=== PATIENT | female | born 1955 | race Caucasian/White ===

== ENCOUNTER 2019-08-06 16:48 | Inpatient (IN) | payer BC, OTHER ==
[2019-08-06] MEDS ORDERED: HYDROcodone/Acetaminophen 10/325 mg Tablet PO PRN ×2 (17:03)
[2019-08-06] MEDS ORDERED: Mag-Al 1200 mg/1200 mg/30 ML UDCUP PO PRN (17:03)
[2019-08-06] MEDS ORDERED: hydrALAZINE 20 MG/ML VIAL SLOW IVP PRN ×2 (17:03)
[2019-08-06] MEDS ORDERED: Morphine 4 MG/ML VIAL SLOW IVP PRN (17:03)
[2019-08-06] MEDS ORDERED: Promethazine HCl 25 MG/ML VIAL IM PRN (17:03)
[2019-08-06] MEDS ORDERED: Morphine 2 MG/ML SYRINGE SLOW IVP PRN (17:03)
[2019-08-06 17:24] VITALS: BMI 28.7
--- NOTE | 2019-08-06 17:49 | RAD ---
Chest AP view INDICATION: Preop evaluation COMPARISON: None FINDINGS: Lungs: The lungs are clear Cardiac silhouette: The cardiomediastinal silhouette appears within normal limits. Pulmonary vasculature: Normal Pleural spaces: No pleural effusion or pneumothorax is demonstrated. Upper abdomen: There is a laparoscopic gastric band in place. Surgical clips are seen within the rig ht upper quadrant possibly reflective of prior cholecystectomy. Osseous structures: No acute osseous abnormality. There is scattered degenerative and osteoarthritic change present. Additional findings: None. IMPRESSION: No acute cardiopulmonary abnormality.
[2019-08-06 17:54] LABS: INR-International Normal Ratio 0.9; PTT 26.8 sec (22.9-36.1); Prothrombin Time 12.5 sec (12.0-14.7)
[2019-08-06] MEDS ORDERED: cefTRIAXone\\ROCEPHIN 2 GM in Sodium Chloride 0.9% 100 ML IVPB SCH (18:00)
[2019-08-06] MEDS: Ondansetron PF 4 MG/2 ML Vial IVP PRN (18:23)
[2019-08-06] MEDS: Ketorolac Tromethamine 30 MG/ML VIAL IVP PRN (18:23)
[2019-08-06] MEDS: Sodium Chloride 0.9% 1,000 ML IV SCH (18:24)
[2019-08-06] MEDS ORDERED: Zolpidem Tartrate 5 MG TAB PO PRN (18:56)
[2019-08-06] MEDS: Docusate 100 MG CAP PO SCH (21:45)
[2019-08-06] MEDS: Famotidine/PF 20 mg/2ml Vial SLOW IVP SCH (21:45)
[2019-08-06] MEDS: Atorvastatin Calcium 20 MG TAB PO SCH (21:45)
[2019-08-06] MEDS: Flecainide 50 MG TAB PO SCH (21:45)
[2019-08-06] MEDS: Acetaminophen 500 MG TAB PO PRN (21:53)
[2019-08-06] MEDS: diphenhydrAMINE 50 MG/ML VIAL IVP PRN (21:53)
--- NOTE | 2019-08-07 00:17 | CON ---
DATE OF CONSULTATION: 08/06/2019 REASON FOR REQUEST: Right ureteral calculi with nausea. HISTORY OF PRESENT ILLNESS: Ms. Gomes is a pleasant 64-year-old female who presented to the emergency room due to acute onset of right flank pain. She was provided a urologic appointment, as her pain was adequately controlled, with no evidence of fever, leukocytosis with normal renal function. As she has persistent nausea, work-in appointment was provided. Chart review demonstrates she previously underwent left ureteroscopy, laser lithotripsy, CT on this admission demonstrates right hydronephrosis, mild due to 5 mm distal ureteral calculi. The patient was advised regarding observation in-house due to nausea to prevent dehydration. She agreed. The patient was seen in our office today, therefore subsequently transferred for medical admission due to nausea, persistent discomfort PAST MEDICAL HISTORY: Includes arthritis, hypercholesteremia, hypothyroidism, history of renal lithiasis, hiatal hernia, obesity, anxiety. SURGICAL HISTORY: Include T and A, total abdominal hysterectomy, x3, lap band in January 2006, cystoscopy, left ureteroscopy, laser lithotripsy, 6 x 24 double-J ureteral [place] [address] Marino. SOCIAL HISTORY: She is a nonsmoker. Denies illicit drug use. FAMILY HISTORY: Positive for obesity. HOME MEDICATIONS: Include Synthroid, flecainide, Prozac, metoprolol, simvastatin, and ranolazine. ALLERGIES: PER PATIENT, SULFA CAUSES RASH, PHYSICAL EXAMINATION: VITAL SIGNS: Stable at a weight of 168, temperature 97.6. GENERAL: The patient has nausea, uncomfortable due to nausea. HEENT: Grossly unremarkable, has positive facial protection due to COVID-19 pandemic. HEART: Regular rate. LUNGS: Clear. ABDOMEN: Soft, morbidly obese. No rigidity. No rebound. Subjective discomfort in the right lower quadrant flank. NEUROLOGIC: Appears to be moving all extremities. No gross focal deficits. EXTREMITIES: No cyanosis, clubbing, or edema. SKIN: No rash. No erythema noted. MUSCULOSKELETAL: Moving all extremities. Sensation appears to be intact. No significant lymphadenopathy. PSYCHIATRIC: Appears to be adequate given her current circumstances. LABORATORY DATA: Pertinent labs which I have reviewed extensive records at [facility]. White count 7.4, hemoglobin 13, platelets 261. Sodium 139, potassium 3.7, creatinine 0.7, blood sugar 123. UA does demonstrate rare epithelials, 3 to 9 rbc's, 10 to 19 wbc's, positive nitrites, bacteria noted. Culture is pending. DIAGNOSTIC STUDIES: CT of the abdomen and pelvis stone protocol at [facility] demonstrates right hydroureteronephrosis, mild due to 5 mm distal ureteral calculi at the level of S3 and S4, right lower pole punctate renal lithiasis, multiple left renal calculi punctate in caliber about 5 in number with no left hydronephrosis. Hiatal hernia noted with multiple sigmoid diverticula. IMPRESSION AND PLAN: Ms. Gomes is a pleasant 64-year-old female. Work-in appointment provided today due to nausea with persistent discomfort. Recommend medical observation to prevent dehydration/pain management. we will continue broad-spectrum antibiotic therapy. The patient is scheduled for cysto, stent tomorrow morning, the patient is to be n.p.o. except medications. I discussed her case with Dr. De La Torre, surgical windows security analyst, given urgent need to proceed due to pain and nausea, she is cleared to proceed with or without COVID-19 testing. Job ID: [id number] [facility]
[2019-08-07] MEDS: Sodium Chloride 0.9% 1,000 ML IV SCH ×4 (01:39→19:54)
[2019-08-07] MEDS: Levothyroxine 150 MCG TAB PO SCH (05:55)
[2019-08-07] MEDS: Ketorolac Tromethamine 30 MG/ML VIAL IVP PRN (05:55)
[2019-08-07] MEDS: Ondansetron PF 4 MG/2 ML Vial IVP PRN (05:56)
[2019-08-07 07:28] LABS: Anion Gap 18 mmol/L (10-20); BUN (Urea Nitrogen) 12 mg/dL (9.8-20.1); Calc. Creatinine Clearance 61 mL/min (70-130); Calcium 8.1 mg/dL (7.8-10.44); Carbon Dioxide 17 mmol/L (23-31); Chloride 108 mmol/L (98-107); Estimated GFR-MDRD 48; Glucose 131 mg/dL (80-115); Potassium 4.7 mmol/L (3.5-5.1); Sodium 138 mmol/L (136-145)
--- NOTE | 2019-08-07 07:53 | PRG ---
DATE OF SERVICE: 08/07/2019 SUBJECTIVE: The patient continues to have intermittent right flank pain, however, denies fever or chills. Has had intermittent emesis, however, feeling better with fluids and pain management. OBJECTIVE: VITAL SIGNS: Stable. T-max of 99.5, 81, 16, 95, 100/62. I's and O 's not strictly documented. GENERAL: The patient is in no acute distress. HEART: Regular rate. LUNGS: Clear. ABDOMEN: Soft, nontender, nondistended. Subjective discomfort in the right lower quadrant flank region. EXTREMITIES: No cyanosis, clubbing, or edema. A.m. labs are pending. IMPRESSION AND PLAN: Ms. Gomes is a 64-year-old female with history of recurrent urolithiasis, presents with right flank pain due to distal ureteral calculi with hydronephrosis. UA at [facility] demonstrated bacteria, she has been provided with Rocephin broad-spectrum. Due to intractable pain, nausea, and emesis, she was admitted overnight, and will proceed with cysto, right stent today. Anticipate the patient will be discharged after surgical intervention. Elective ureteroscopy, laser lithotripsy when urine culture negative discussed with her in detail. Consent in chart. Job ID: [id number] [facility]
[2019-08-07] MEDS: Flecainide 50 MG TAB PO SCH ×2 (09:00→20:05)
[2019-08-07] MEDS: FLUoxetine HCl 20 MG CAP PO SCH (09:00)
[2019-08-07] MEDS: cefTRIAXone\\ROCEPHIN 2 GM in Sodium Chloride 0.9% 100 ML IVPB SCH (09:00)
[2019-08-07] MEDS: Docusate 100 MG CAP PO SCH ×2 (09:01→20:05)
[2019-08-07] MEDS: Famotidine/PF 20 mg/2ml Vial SLOW IVP SCH ×2 (09:15→20:05)
[2019-08-07] MEDS ORDERED: Iopamidol 50 ML FS ONE (11:05)
[2019-08-07] MEDS ORDERED: Ondansetron PF 4 MG/2 ML Vial ONE (11:28)
[2019-08-07] MEDS ORDERED: EPHEDRINE 25 MG/5 ML SYRINGE ONE (11:28)
[2019-08-07] MEDS ORDERED: Metoclopramide HCl 10 MG/2 ML VIAL ONE (11:28)
[2019-08-07] MEDS ORDERED: PHENYLEPHRINE-NS 100 MCG/ML 10 ML SYRINGE ONE (11:28)
[2019-08-07] MEDS ORDERED: Lidocaine 1% PF 5 ML VIAL ONE (11:28)
[2019-08-07] MEDS ORDERED: Fentanyl 100 MCG/2 ML VIAL ONE (11:37)
[2019-08-07] MEDS ORDERED: Oxybutynin 5 MG TAB PO PRN (11:52)
[2019-08-07] MEDS ORDERED: Phenazopyridine HCl 97.5 MG TABLET PO PRN (11:52)
[2019-08-07] MEDS ORDERED: Ondansetron HCl/PF 4 MG/2 ML Vial IVP PRN (12:02)
[2019-08-07] MEDS ORDERED: Promethazine HCl 25 MG/ML VIAL IM PRN (12:02)
[2019-08-07] MEDS ORDERED: HYDROmorphone 2 MG/ML VIAL SLOW IVP PRN (12:02)
[2019-08-07] MEDS ORDERED: Promethazine HCl 25 MG/ML VIAL SLOW IVP PRN (12:02)
--- NOTE | 2019-08-07 12:13 | RAD ---
EXAM: Retrograde IVP HISTORY: Kidney stones COMPARISON: None FINDINGS/IMPRESSION: Limited intraoperative fluoroscopic views of the retrograde IVP were submitted f or interpretation. There is mild right hydronephrosis. No obvious filling defects are seen. A ureteral stent is seen on the last image in good position in the right renal collecting system.
[2019-08-07] MEDS ORDERED: Meperidine HCl/PF 25 MG/ML VIAL ONE (12:47)
[2019-08-07 12:48] LABS: SARS-CoV-2 MS2 Positive; SARS-CoV-2 N Gene Negative; SARS-CoV-2 S Gene Negative; SARS-CoV-2 orf1ab Negative
[2019-08-07 17:09] LABS: Bacteria/HPF 3+ HPF (None Seen); Bilirubin Negative (Negative); Blood, Urine 3+ (Negative); Clarity Extra Turbid (Clear); Glucose, Urine (Dipstick) Normal (Negative); Leukocyte 500 Leu/uL (Negative); Nitrite Negative (Negative); Protein, Urine (Dipstick) 100 mg/dL (Neg-Trace); RBC/HPF Greater than 50 HPF (0-3); Squamous Epithelial None Seen HPF (0-3); Urobilinogen Normal mg/dL (Less than 2); WBC/HPF Greater than 50 HPF (0-3)
--- NOTE | 2019-08-07 18:03 | OP ---
DATE OF PROCEDURE: 08/07/2019 PREOPERATIVE DIAGNOSES: 1. A 64-year-old female with right distal ureteral calculi at the level of S3 with mild hydronephrosis. 2. Right lower pole punctate renal lithiasis, nonobstructing. 3. Left punctate renal lithiasis x5 with no evidence of left hydronephrosis. PROCEDURES PERFORMED: Cystoscopy, right retrograde, 4.8 x 26 double-J ureteral stent with distal tail in situ, 16-Hebrew [place] catheter to gravity. ANESTHESIA: LMA. COMPLICATIONS: None apparent. DISPOSITION: To recovery room. INDICATIONS FOR PROCEDURE AND HISTORY: Ms. Gomes is a pleasant 64-year-old female, who presented due to acute onset of right flank pain. She had no fever, no leukocytosis with normal renal function. However, due to intractable pain with nausea, she was admitted overnight. Broad-spectrum antibiotics were provided and she presents today for cysto, stent. She has been fully informed that ureteroscopy and laser lithotripsy will be performed at a later date when urine culture negative. Risks and complications of the procedure were reviewed including, but not limited to, bleeding, pain, infection, urosepsis, ureteral, renal, bladder injury. All questions answered to her satisfaction. She desired to proceed. DESCRIPTION OF PROCEDURE: After an informed consent was signed, the patient was taken to the operating room, placed in a dorsal lithotomy position with the genital area prepped and draped in the usual surgical sterile fashion. A 21-Hebrew cystoscope was utilized for cystoscopy, which demonstrated normal bladder mucosa. There were no bladder tumors or stones seen within the bladder. UOs were identified in normal orthotopic position. There was a questionable ureteral stone versus phlebolith in the right distal ureter about 2 to 3 cm proximal to the ureteral orifice, retrograde pyelogram was gently performed, which demonstrating tortuous ureter with possible filling defect in the distal ureter versus the mid sacrum with proximal hydroureteronephrosis, with J hooking of the proximal ureter consistent with obstruction. A 0.035 Sensor wire was able to be passed to the right upper pole without significant issues; however, at the level of the renal pelvis, UPJ, had a difficult time passing a 6-Hebrew stent. Therefore, the stent was completely removed, and a 5-Hebrew open-ended catheter was gently passed, which this did pass to the level of the renal pelvis with ease. Subsequently, we transitioned to a 4.8-Hebrew x 26 cm ureteral stent and this passed without significant resistance. Adequate placement was confirmed on fluoroscopy. With the placement of the ureteral stent, she has significant efflux of debris consistent with pyelonephritis. Therefore, an indwelling Colorado catheter was placed to gravity and I will monitor her urine output in her clinical status. Pending her clinical status, she will likely stay another 24 hours, as we will need to monitor her for infection and complications. She will be provided broad-spectrum antibiotics and IV fluids. She remains clinically stable. Job ID: [id number] [facility]
--- NOTE | 2019-08-07 19:20 | EKG ---
Test Reason : Blood Pressure : / mmHG Vent. Rate : 074 BPM Atrial Rate : 074 BPM P-R Int : 182 ms QRS Dur : 084 ms QT Int : 454 ms P-R-T Axes : 069 044 063 degrees QTc Int : 503 ms Normal sinus rhythm Prolonged QT Abnormal ECG No previous ECGs available Confirmed by DR. Ruthie RYAN ([id number]) on 08/07/2019 7:19:59 PM Referred By: FARHANA Confirmed By:DR. Ruthie RYAN
[2019-08-07] MEDS: Acetaminophen 500 MG TAB PO PRN (19:54)
[2019-08-07] MEDS: Atorvastatin Calcium 20 MG TAB PO SCH (20:05)
[2019-08-08] MEDS: Sodium Chloride 0.9% 1,000 ML IV SCH (02:10)
[2019-08-08] MEDS: Levothyroxine 150 MCG TAB PO SCH (06:37)
[2019-08-08] MEDS: Acetaminophen 500 MG TAB PO PRN (06:37)
--- NOTE | 2019-08-08 08:19 | PRG ---
DATE OF SERVICE: 08/08/2019 SUBJECTIVE: The patient is feeling better, has headache, however, overall pain is significantly improved, with resolution of nausea. Requiring only tramadol and Tylenol for discomfort. Tolerating regular diet. OBJECTIVE: VITALS: T-max of 100.2 last night. T-current is 98.2, 87, 18, 94, 123/68. I's and O's 3700 in, 1750 out. She is positive 1.9 L. Oral intake adequate over 1 L. GENERAL: The patient is in no acute distress. Clinically appears to be much better. HEART: Regular rate, LUNGS: Clear. ABDOMEN: Soft. No rigidity. No rebound. No CVA tenderness appreciated. Colorado catheter draining clear yellow urine. Repeat urine culture is pending. Urine culture from outside facility pending as well. IMPRESSION AND PLAN: Ms. Gomes is a 64-year-old female who presented with right distal ureteral calculi with mild hydronephrosis with no evidence of leukocytosis with normal renal function. Due to intractable nausea, discomfort, was admitted , status postop day #1, status post right ureteral stent. The patient had significant debris with ureteral stent placement, was observed overnight. I informed to her that we should keep for another day, as she did have a temperature last night. We will continue her IV Rocephin, as she has positive fluid balance, will Hep-Lock IV. The patient encouraged to be out of bed, I will discontinue Colorado. Anticipate the patient can be discharged tomorrow and hopefully, we will have the sensitivity in ID from previous urine culture for oral targeted antibiotic regimen. Job ID: [id number] [facility]
[2019-08-08] MEDS: cefTRIAXone\\ROCEPHIN 2 GM in Sodium Chloride 0.9% 100 ML IVPB SCH (09:06)
[2019-08-08] MEDS: Famotidine/PF 20 mg/2ml Vial SLOW IVP SCH ×2 (09:19→20:08)
[2019-08-08] MEDS: Flecainide 50 MG TAB PO SCH ×2 (09:19→20:08)
[2019-08-08] MEDS: Docusate 100 MG CAP PO SCH ×2 (09:19→19:58)
[2019-08-08] MEDS: FLUoxetine HCl 20 MG CAP PO SCH (09:19)
[2019-08-08] MEDS: Ibuprofen 600 MG TAB PO PRN (11:45)
[2019-08-08] MEDS: traMADol HCl 50 MG TAB PO PRN (19:53)
[2019-08-08] MEDS: Atorvastatin Calcium 20 MG TAB PO SCH (20:07)
[2019-08-08] MEDS: diphenhydrAMINE 50 MG/ML VIAL IVP PRN (20:08)
[2019-08-09] MEDS: traMADol HCl 50 MG TAB PO PRN (02:44)
[2019-08-09] MEDS: Levothyroxine 150 MCG TAB PO SCH (05:38)
[2019-08-09] MEDS: Ibuprofen 600 MG TAB PO PRN (07:12)
--- NOTE | 2019-08-09 07:35 | DIS ---
DATE OF ADMISSION: 08/06/2019 DATE OF DISCHARGE: 08/09/2019 ADMITTING DIAGNOSES: Intractable discomfort, nausea, due to right distal ureteral calculi. PROCEDURES: Cysto, right retrograde 4.8 x 26 stent on August 06. DISPOSITION: To home, to self-care. CONDITION: Stable. FOLLOWUP: followup appointment on August 12 at 1:00 p.m. BRIEF HOSPITAL COURSE: Ms. Gomes is a pleasant 64-year-old female with history of recurrent kidney stone, presented with right flank pain, nausea. Due to persistent discomfort, nausea, and emesis, she was admitted. Underwent cysto, stent placement. The patient's urine culture at an outside facility demonstrates E coli, she has responded to Omnicef with recheck urine culture in-house negative. She has been afebrile, medically cleared to be discharged. DISCHARGE MEDICATIONS: 1. Omnicef 300 mg one p.o. b.i.d. x14 days. 2. VESIcare 5 mg one p.o. daily. 3. Azo p.r.n. 4. Zofran 4 mg ODT p.r.n. 5. Tramadol 50 mg 1 to 2 p.o. q.6 hours p.r.n. FOLLOWUP: followup appointment next week. Job ID: [id number] [facility]
[2019-08-09] MEDS: cefTRIAXone\\ROCEPHIN 2 GM in Sodium Chloride 0.9% 100 ML IVPB SCH (08:07)
[2019-08-09] MEDS: FLUoxetine HCl 20 MG CAP PO SCH (08:08)
[2019-08-09] MEDS: Flecainide 50 MG TAB PO SCH (08:08)
[2019-08-09] MEDS: Famotidine/PF 20 mg/2ml Vial SLOW IVP SCH (08:08)
[2019-08-09] MEDS: Docusate 100 MG CAP PO SCH (08:08)
[2019-08-09 10:25] VITALS: BP 145/77; TEMP 97.7
[2019-08-11] MEDS ORDERED: Ibuprofen 600 MG TAB PO PRN (23:00)
--- NOTE | 2019-08-12 01:33 | PQF ---
HARDEEP BLAKELY KATHY DO [id number] CLINICAL DOCUMENTATION CLARIFICATION FORM: POST DISCHARGE Addendum to original discharge summary date: ____ Late entry note date: __ DATE:08/12/2019 ATTN: Racheal Lemons Please exercise your independent, professional judgment in responding to the clarification form. Clinical indicators are provided on the bottom of this form for your review Please check appropriate box(es): [ ] Sepsis due to Pyelonephritis [ X ] Localized infection without sepsis [ ] Other diagnosis [ ] Unable to determine In addition, please specify: Present on Admission (POA): [ X ] Yes [ ] No [ ] Unable to determine For continuity of documentation, please document condition throughout progress notes and discharge summary. Thank You. CLINICAL INDICATORS - SIGNS / SYMPTOMS / LABS Vital signs 08/05 BP 167/80, Pulse 84, Resp 18, Temp 97.4 Vital signs 08/06 BP 96/59, Pulse 106, Resp 18, Temp 100.2 Urinalysis 08/06 Red A color, Extra Turbid a, urine blood 3+, Leukocyte esterase 500, Bacteria 3+A Urine Culture 08/06 No growth at 48 hrs Consult p1 08/05 Dr Umanzor presented with acute onset of right flank pain Operative report p2 08/06 Pyelonephritis RISK FACTORS Consult p1 08/05 64 year-old Female Consult p1 08/05 Hx of renal lithiasis Consult p1 08/05 Hypercholesteremia Operative report p1 08/06 Ureteral calculi Operative report p1 08/06 Renal lithiasis, non-obstructing Operative report p2 08/06 Pyelonephritis TREATMENTS: Urinalysis ordered 08/06 Urine Culture ordered 08/06 consult 08/05 Racheal Lemons Operative report Ureteral stent insertion with Retrograde pyelogram MAR 08/05 IVF NS 1L MAR 16 IV Ceftriaxone Sodium 2 gm (This form is maintained as a part of the permanent medical record) 2014 [email or web address], [email or web address] All Rights Reserved [email or web address]
== END 2019-08-09 10:34 | disposition home or self-care (01) | DRG 661 ==
LOC: T4-A 16:48 → OBSVTOIN 16:48 → INTOOBSV 16:48 → EDSTATUS 08-07 16:47
PROVIDERS: ADMIT Urology; ATTEND Urology
PROC: 0T768DZ Dilation of Right Ureter with Intraluminal Device, Via Natural or Artificial Opening Endoscopic (ICD-10-PCS; principal; 2019-08-07)
PROC: 0T9B70Z Drainage of Bladder with Drainage Device, Via Natural or Artificial Opening (ICD-10-PCS; 2019-08-07)
PROC: BT1DZZZ Fluoroscopy of Right Kidney, Ureter and Bladder (ICD-10-PCS; 2019-08-07)
DX: N13.6 Pyonephrosis (principal); M19.90 Unspecified osteoarthritis, unspecified site; E03.9 Hypothyroidism, unspecified; E78.00 Pure hypercholesterolemia, unspecified; E66.9 Obesity, unspecified; F41.9 Anxiety disorder, unspecified; Z11.59 Encounter for screening for other viral diseases; Z90.710 Acquired absence of both cervix and uterus; Z68.28 Body mass index [BMI] 28.0-28.9, adult; Z87.442 Personal history of urinary calculi; Z88.2 Allergy status to sulfonamides; Z79.899 Other long term (current) drug therapy; Z79.890 Hormone replacement therapy
CPT/HCPCS: 36415; 71045; 74420; 80048; 81001; 85610; 85730; 87086; 87635; 93005; 93010; 96361; 96374; 96376; G0378; G0379; J0696; J1200; J1885; J2001; J2175; J2405; J2765; J3010; J3490; Q9967; S0028; U0003

== ENCOUNTER 2019-08-16 06:14 | Outpatient (CLI) | payer BC, OTHER ==
[2019-08-16 11:28] LABS: Hemoglobin 13.7 g/dL (12.0-16.0); Mean Corpuscular HGB CONC 33.6 g/dL (32.0-36.0); Mean Corpuscular Hemoglobin 29.1 pg (27.0-31.0); Mean Corpuscular Volume 86.5 fL (78.0-98.0); Mean Platelet Volume 7.3 fL (7.4-10.4); Platelet Count 391 thou/uL (130-400); Red Blood Cell (RBC) Count 4.71 mill/uL (4.20-5.40); White Blood Cell (WBC) Count 6.9 thou/uL (4.8-10.8)
[2019-08-16 11:39] LABS: INR-International Normal Ratio 0.9; PTT 25.8 sec (22.9-36.1); Prothrombin Time 12.3 sec (12.0-14.7)
--- NOTE | 2019-08-16 11:57 | RAD ---
PA AND LATERAL CHEST: HISTORY: Preop. FINDINGS: Heart size is within normal limits. There are atherosclerotic changes of the aorta. The lungs are c lear of infiltrates. IMPRESSION: No active intrathoracic disease. POS: [facility]
[2019-08-16 13:24] LABS: Anion Gap 16 mmol/L (10-20); BUN (Urea Nitrogen) 9 mg/dL (9.8-20.1); Calc. Creatinine Clearance 0 mL/min (70-130); Calcium 9.3 mg/dL (7.8-10.44); Carbon Dioxide 25 mmol/L (23-31); Chloride 106 mmol/L (98-107); Estimated GFR-MDRD 75; Glucose 102 mg/dL (80-115); Potassium 4.5 mmol/L (3.5-5.1); Sodium 142 mmol/L (136-145)
[2019-08-17 13:14] LABS: SARS-CoV-2 MS2 Positive; SARS-CoV-2 N Gene Negative; SARS-CoV-2 S Gene Negative; SARS-CoV-2 orf1ab Negative
== END 2019-08-16 06:15 | disposition home or self-care (01) ==
LOC: LABBT 06:14
PROVIDERS: ATTEND Urology
DX: Z01.818 Encounter for other preprocedural examination (principal); Z11.59 Encounter for screening for other viral diseases; N20.2 Calculus of kidney with calculus of ureter; R11.0 Nausea
CPT/HCPCS: 71046; 80048; 85027; 85610; 85730; 87635; 93005; 93010; U0003

== ENCOUNTER 2019-08-21 05:47 | Day surgery (SDC) | payer BC ==
[2019-08-15 13:18] VITALS: BMI 27.9
[2019-08-21] MEDS ORDERED: Fentanyl 100 MCG/2 ML VIAL ONE (06:39)
[2019-08-21] MEDS ORDERED: Levofloxacin 500 mg/D5W 100 ml Premix Bag ONE (06:47)
[2019-08-21] MEDS ORDERED: Iopamidol 15 ML ONE (07:09)
[2019-08-21] MEDS ORDERED: Ondansetron HCl/PF 4 MG/2 ML Vial IVP PRN (07:16)
[2019-08-21] MEDS ORDERED: Promethazine HCl 25 MG/ML VIAL SLOW IVP PRN (07:16)
[2019-08-21] MEDS ORDERED: Morphine Sulfate 2 MG/ML SYRINGE SLOW IVP PRN (07:16)
[2019-08-21] MEDS ORDERED: Promethazine HCl 25 MG/ML VIAL IM PRN (07:16)
[2019-08-21] MEDS ORDERED: HYDROmorphone 2 MG/ML VIAL SLOW IVP PRN (07:16)
[2019-08-21] MEDS ORDERED: Meperidine HCl/PF 25 MG/ML VIAL SLOW IVP PRN (07:16)
[2019-08-21] MEDS ORDERED: Scopolamine 1.5 mg/72 hour Patch ONE (07:32)
[2019-08-21] MEDS ORDERED: SUGAMMADEX SODIUM 500 MG/5 ML VIAL ONE ×2 (08:01)
--- NOTE | 2019-08-21 08:02 | RAD ---
Abdomen one view HISTORY: Ureteral calculus. FINDINGS: Gas and stool throughout the colon, predominantly obscuring the renal outlines. Bariatric l ap band partially visualized, in good position at the upper stomach. Double pigtail right ureteral stent is in place. Overlying the distal stomach the right lower margin of the sacrum is a rounded 0.5 cm calculus that may be within the distal right ureter. Phleboliths are also apparent within the pelvis and retroperitoneum. IMPRESSION : Right ureteral stent in good position. Probable small distal right ureteral calculus. Bariatric lap band. Constipation.
--- NOTE | 2019-08-21 08:07 | RAD ---
Retrograde ureterogram intraoperative fluoroscopy HISTORY: Ureteral calculus. FINDINGS: Intraoperative fluoroscopy was provided for retrograde study as performed by Dr. Lizzie estrada Single spot fluoroscopic view partially shows cystoscopy catheter. Double-pigtail right ureteral stent is in place, slightly changed in position and larger in caliber than on the previous exam. Distal right ureteral calculus on the previous exam not well visualized, possibly removed.
[2019-08-21] MEDS ORDERED: Phenazopyridine HCl 97.5 MG TABLET ONE (08:26)
--- NOTE | 2019-08-21 09:09 | OP ---
DATE OF PROCEDURE: 08/21/2019 PREOPERATIVE DIAGNOSES: A 64-year-old female with history of recurrent urolithiasis, presents with right distal ureteral calculi, with previous history of urinary tract infection treated and resolved. POSTOPERATIVE DIAGNOSES: A 64-year-old female with history of recurrent urolithiasis, presents with right distal ureteral calculi, with previous history of urinary tract infection treated and resolved. PROCEDURES PERFORMED: Cystoscopy, right ureteroscopy, laser lithotripsy of distal ureteral calculi, 6 x 26 double-J ureteral stent replacement with Dangler taped to the patient's pubic symphysis, laser lithotripsy. ANESTHESIA: LMA general. COMPLICATIONS: None apparent. DISPOSITION: To recovery room in stable condition. INDICATION FOR PROCEDURE AND HISTORY: Ms. Gomes is a pleasant 64-year-old female who presented with right flank pain, with nausea. Urine culture demonstrated E coli, which has been treated with cephalosporins with recheck urine culture negative. She presents today for ureteroscopy and laser lithotripsy. Risks and complications of the procedure were reviewed with her in detail including, but not limited to: Bleeding; pain; infection; injury to adjacent organs; ureteral, renal, or bladder injury; stricture formation; possible secondary procedure. All questions answered to her satisfaction, she desired to proceed. DESCRIPTION OF PROCEDURE: After an informed consent was signed, the patient was taken to the operating room, placed in dorsal lithotomy position with the genital area prepped and draped in the usual surgical sterile fashion. A 21-Austrian cystoscope was utilized for cystoscopy, which demonstrated normal bladder mucosa. The right ureteral stent was removed to the level of the meatus and a 0.035 Sensor wire passed through the stent into the right upper pole. At this time, we transitioned to a semi-rigid ureteroscope. I was able to easily engage the stone and she was passively dilated. There was a stone debris fragmented in the distal ureter just proximal to the presenting stone and this was basket extracted. The initial stone nidus was seen at the level of S3 for ureter and using 365 micron laser fiber, we laser lithotripsied the edges. When the stone was small enough , we basket extracted the stone atraumatically. She tolerated the procedure well. As there was endoscopic clearance, a 6 x 26 double-J ureteral stent was passed over the guidewire. The wire was subsequently removed with good coil seen in the kidney and bladder. The stent string was then taped to the patient's pubic symphysis and she tolerated the procedure well. She will follow up with me next Monday at 8:00 a.m., for stent pull on Dangler. She has a vague nonspecific rash in the right upper back. Therefore, I will transition her to ciprofloxacin for postop antibiotics. Ciprofloxacin 500 mg one p.o. b.i.d. for 7 days, Colace, Azo prescription refill , tramadol 50 mg #30, Zofran 4 mg p.r.n., VESIcare 5 mg for bladder spasms. Appointment with me on August 26 at 8:00 a.m. for stent pull on Dangler. After convalescence, full metabolic panel would be advised. Job ID: [id number] [facility]
[2019-08-21] MEDS ORDERED: Dexamethasone 20 MG/5 ML VIAL ONE (09:24)
[2019-08-21] MEDS ORDERED: PHENYLEPHRINE-NS 100 MCG/ML 10 ML SYRINGE ONE (09:24)
[2019-08-21] MEDS ORDERED: PROPOFOL 200 MG/20 ML VIAL ONE (09:24)
[2019-08-21] MEDS ORDERED: Lidocaine 1% PF 5 ML VIAL ONE (09:24)
[2019-08-21] MEDS ORDERED: Ketorolac Tromethamine 30 MG/ML VIAL ONE (09:24)
[2019-08-21] MEDS ORDERED: Ondansetron PF 4 MG/2 ML Vial ONE (09:24)
[2019-08-21] MEDS ORDERED: Rocuronium Bromide 10 MG/ML (10ML VIAL) ONE (09:24)
[2019-08-21] MEDS ORDERED: EPHEDRINE 25 MG/5 ML SYRINGE ONE (09:24)
[2019-08-21] MEDS ORDERED: diphenhydrAMINE 50 MG/ML VIAL ONE (09:24)
== END 2019-08-21 12:35 | disposition home or self-care (01) ==
LOC: SDC 05:47
PROVIDERS: ATTEND Urology
PROC: 0T768DZ Dilation of Right Ureter with Intraluminal Device, Via Natural or Artificial Opening Endoscopic (ICD-10-PCS; principal; 2019-08-21)
PROC: 0TC68ZZ Extirpation of Matter from Right Ureter, Via Natural or Artificial Opening Endoscopic (ICD-10-PCS; principal; 2019-08-21)
DX: N20.1 Calculus of ureter (principal); E78.00 Pure hypercholesterolemia, unspecified; E03.9 Hypothyroidism, unspecified; F41.9 Anxiety disorder, unspecified; E66.9 Obesity, unspecified; Z68.28 Body mass index [BMI] 28.0-28.9, adult; Z79.899 Other long term (current) drug therapy; Z88.2 Allergy status to sulfonamides
CPT/HCPCS: 74018; 74420; 82365; 88300; J1100; J1200; J1885; J1956; J2001; J2405; J2704; J3010; Q9967

== ENCOUNTER 2020-02-03 09:57 | Outpatient (CLI) | payer BC ==
--- NOTE | 2020-02-03 10:23 | ULT ---
US Renal Bilateral STANDARD History: Recurrent kidney stones Comparison: None. Findings: Real-time grayscale and color evaluation of the kidneys and urinary bladder was performed. Right kidney measures 11.4 x 5.5 cm and the left kidney measures 11.1 x 5.9 x 5.7 cm. No renal mass, hydronephrosis or abnormal calcifications. Diffuse hepatic steatosis. IMPRESSION: Normal renal ultrasound.
--- NOTE | 2020-02-03 10:59 | RAD ---
XR Abdomen 1 View/KUB History: Renal calculi Comparison: Radiograph August 21, 2019 Findings: The right ureteral stent has been removed. Phleboliths of pelvis are similar. Impression: Removal of the right ureteral stent. No obvious calculi.
== END 2020-02-03 09:58 | disposition home or self-care (01) ==
LOC: BICULT 09:57
PROVIDERS: ATTEND Urology
DX: N20.0 Calculus of kidney (principal)
CPT/HCPCS: 74018; 76770

== ENCOUNTER 2020-08-04 09:08 | Outpatient (CLI) | payer MEDICARE, BC | END 2020-08-04 09:09 | disposition home or self-care (01) | LOC: BICRAD 09:08 | PROVIDERS: ATTEND Urology | DX: N20.0 Calculus of kidney (principal) | CPT/HCPCS: 74018 ==

== ENCOUNTER 2020-11-04 10:16 | Emergency (ER) | payer MEDICARE, BC ==
[2020-11-04] MEDS ORDERED: Amlodipine 5 MG TAB ONE (10:54)
[2020-11-04 11:02] LABS: #Basophils 0.1 thou/uL (0.0-0.2); #Eosinphils 0.2 thou/uL (0.0-0.7); #Lymphocytes 2.5 thou/uL (1.20-3.40); #Monocytes 0.5 thou/uL (0.11-0.59); #Neutrophils 4.3 thou/uL (1.40-6.50); %Basophils 0.8 % (0.0-1.0); %Eosinophils 2.4 % (0.0-10.0); %Lymphocytes 33.5 % (21.0-51.0); %Monocytes 6.7 % (0.0-10.0); %Neutrophils 56.6 % (42.0-75.0); Hemoglobin 14.6 g/dL (12.0-16.0); Mean Corpuscular HGB CONC 34.7 g/dL (32.0-36.0); Mean Corpuscular Hemoglobin 29.5 pg (27.0-31.0); Mean Corpuscular Volume 84.8 fL (78.0-98.0); Mean Platelet Volume 6.9 fL (7.4-10.4); Platelet Count 283 thou/uL (130-400); RBC Distribution Width 12.6 % (11.5-14.5); Red Blood Cell (RBC) Count 4.97 mill/uL (4.20-5.40); White Blood Cell (WBC) Count 7.6 thou/uL (4.8-10.8)
[2020-11-04] MEDS ORDERED: Metoclopramide HCl 10 MG/2 ML VIAL ONE ×2 (11:15→12:13)
[2020-11-04] MEDS ORDERED: Acetaminophen 500 MG TAB ONE (11:15)
[2020-11-04 11:24] LABS: ALT (SGPT) 29 U/L (8-55); AST (SGOT) 25 U/L (5-34); Albumin 4.1 g/dL (3.4-4.8); Alkaline Phosphatase 80 U/L (40-110); Anion Gap 15 mmol/L (10-20); BUN (Urea Nitrogen) 8 mg/dL (9.8-20.1); Bilirubin, Total 0.5 mg/dL (0.2-1.2); Calc. Creatinine Clearance 0 mL/min (70-130); Calcium 9.2 mg/dL (7.8-10.44); Carbon Dioxide 22 mmol/L (23-31); Chloride 106 mmol/L (98-107); Globulin 3.3 g/dL (2.4-3.5); Glucose 116 mg/dL (80-115); Potassium 4.3 mmol/L (3.5-5.1); Protein, Total 7.4 g/dL (5.8-8.1); Sodium 139 mmol/L (136-145)
[2020-11-04] MEDS ORDERED: Ketorolac Tromethamine 30 MG/ML VIAL ONE (12:19)
== END 2020-11-04 12:46 | disposition home or self-care (01) ==
LOC: ERS 10:16
DX: I10 Essential (primary) hypertension (principal); R51.9 Headache, unspecified; E78.5 Hyperlipidemia, unspecified; E78.00 Pure hypercholesterolemia, unspecified; Z79.899 Other long term (current) drug therapy
CPT/HCPCS: 36415; 70450; 80053; 85025; 94760; 96365; 96375; J1885; J2765

== ENCOUNTER 2020-11-28 07:25 | Emergency (ER) | payer MEDICARE, BC | END 2020-11-28 09:41 | disposition left against medical advice (07) | LOC: ERS 07:25 | DX: Z53.21 Procedure and treatment not carried out due to patient leaving prior to being seen by health care provider (principal) ==